=== PATIENT | female | born 1985 | race Caucasian/White ===

== ENCOUNTER 2023-05-12 09:24 | Emergency (ER) | payer SELFPAY ==
[2023-05-12 10:10] LABS: Hematocrit 41.2 % (34.9-44.5); Hemoglobin 14.2 g/dL (12.0-15.5); Mean Corpuscular Volume 91.6 fl (81.6-98.3); White Blood Cell (WBC) Count 16.6 10x3/uL (3.5-10.5)
[2023-05-12 10:12] LABS: Mean Corpuscular HGB CONC 34.5 g/dL (32.0-36.0); Mean Corpuscular Hemoglobin 31.6 pg (27.0-33.0); RBC Distribution Width 12.8 % (11.5-14.5)
[2023-05-12 10:13] LABS: #Neutrophils 11.3 10x3/uL (1.5-8.4); %Basophils 0.5 % (0.0-2.0); %Eosinophils 1.7 % (0.0-6.0); %Lymphocytes 22.9 % (18.0-47.0); %Monocytes 6.2 % (0.0-10.0); %Neutrophils 68.3 % (40.0-75.0); Mean Platelet Volume 11.9 fl (7.4-10.4); Platelet Count 293 10x3/uL (130-400)
[2023-05-12 10:14] LABS: #Basophils 0.1 10x3/uL (0.0-0.2); #Eosinphils 0.3 10x3/uL (0.0-0.5)
[2023-05-12 10:40] LABS: Carbon Dioxide 25 mmol/L (22-29); Chloride 103 mmol/L (98-107); Potassium 3.5 mmol/L (3.5-5.1); Sodium 139 mmol/L (136-145)
[2023-05-12 10:41] LABS: ALT (SGPT) 18 U/L (8-55); AST (SGOT) 19 U/L (5-34); Albumin 4.5 g/dL (3.5-5.0); Alkaline Phosphatase 71 U/L (40-110); Anion Gap 15 mmol/L (10-20); BUN (Urea Nitrogen) 8 mg/dL (7.0-18.7); Bilirubin, Total 0.3 mg/dL (0.2-1.2); Calc. Creatinine Clearance 0 mL/min (70-130); Calcium 9.3 mg/dL (7.6-10.4); Estimated GFR 108; Globulin 3.4 g/dL (2.4-3.5); Glucose 98 mg/dL (70-105); Protein, Total 7.9 g/dL (6.0-8.3)
[2023-05-12] MEDS ORDERED: Ondansetron ODT 4 MG TAB ONE (10:41)
[2023-05-12 11:21] LABS: Bilirubin Neg (Negative); Blood, Urine Negative (Negative); Clarity Clear (Clear); Glucose, Urine (Dipstick) Normal (Negative); Ketone, Urine Negative (Negative); Leukocyte Negative (Negative); Nitrite Negative (Negative); Protein, Urine (Dipstick) Negative (Neg-Trace); Specific Gravity, Urine 1.015 (1.005-1.030); Urobilinogen Normal mg/dL (Less than 2)
[2023-05-12 11:26] LABS: Pregnancy Test - Urine (BHCG) Negative (Negative); Pregu Control Background? CLEAR/WHITE (CLR/WHITE); Pregu Control Bar Appear? YES (CONTROL BAR); Specific Gravity 1.015 (1.002-1.036)
[2023-05-12 11:30] LABS: Bacteria/HPF 2+ HPF (None Seen); CAUTI Indications for Culture Pregnancy; Mucous/LPF 1+ LPF (<2+); RBC/HPF 0-3 HPF (0-3); WBC/HPF 0-3 HPF (0-3)
[2023-05-12 11:32] LABS: Urine Culture Reflex Yes Yes
== END 2023-05-12 11:38 | disposition left against medical advice (07) ==
LOC: CSHERS 09:24
DX: Z53.21 Procedure and treatment not carried out due to patient leaving prior to being seen by health care provider (principal)
CPT/HCPCS: 80053; 81001; 81025; 83690; 85025; 87086; Q0162

== ENCOUNTER 2024-06-13 18:20 | Emergency (ER) | payer SELFPAY ==
[~2024-06-13 18:20] MED LIST: Iopamidol 300 61% 100 ML VIAL FS ONE
[2024-06-13 19:25] LABS: #Basophils 0.05 10x3/uL (0.0-0.2); #Monocytes 0.99 10x3/uL (0.0-1.1); #Neutrophils 6.96 10x3/uL (1.5-8.4); %Basophils 0.5 % (0.0-2.0); %Eosinophils 1.8 % (0.0-6.0); %Lymphocytes 24.7 % (18.0-47.0); %Neutrophils 63.6 % (40.0-75.0); Hematocrit 40.6 % (34.9-44.5); Hemoglobin 13.6 g/dL (12.0-15.5); Mean Corpuscular HGB CONC 33.5 g/dL (32.0-36.0); Mean Corpuscular Hemoglobin 30.2 pg (27.0-33.0); Mean Corpuscular Volume 90.2 fL (81.6-98.3); Mean Platelet Volume 11.8 fL (7.4-10.4); Platelet Count 289 10x3/uL (150-450); RBC Distribution Width 12.6 % (11.5-14.5)
[2024-06-13 19:39] LABS: ALT (SGPT) 18 U/L (8-55); AST (SGOT) 20 U/L (5-34); Albumin 4.1 g/dL (3.5-5.0); Alkaline Phosphatase 66 U/L (40-110); Anion Gap 13 mmol/L (10-20); BUN (Urea Nitrogen) 7 mg/dL (7.0-18.7); Bilirubin, Total 0.5 mg/dL (0.2-1.2); Calc. Creatinine Clearance 0 mL/min (70-130); Calcium 9.5 mg/dL (7.8-10.44); Carbon Dioxide 25 mmol/L (22-29); Chloride 104 mmol/L (98-107); Estimated GFR 104; Globulin 3.7 g/dL (2.4-3.5); Glucose 89 mg/dL (70-105); Lipase 26 U/L (8-78); Potassium 3.5 mmol/L (3.5-5.1); Protein, Total 7.8 g/dL (6.0-8.3); Sodium 138 mmol/L (136-145)
[2024-06-13] MEDS ORDERED: Ketorolac Tromethamine 30 MG (1 mL) VIAL ONE (20:07)
[2024-06-13] MEDS ORDERED: Ondansetron PF 4 MG/2 ML Vial ONE (20:07)
[2024-06-13 21:10] LABS: Bilirubin Neg (Negative); Blood, Urine Negative (Negative); Clarity Clear (Clear); Glucose, Urine (Dipstick) Normal (Negative); Ketone, Urine Negative (Negative); Leukocyte Negative (Negative); Nitrite Negative (Negative); Protein, Urine (Dipstick) Negative (Neg-Trace); Urobilinogen Normal mg/dL (Less than 2)
[2024-06-13 21:29] LABS: Bacteria/HPF Rare-Few HPF (None Seen); CAUTI Indications for Culture Pelvic or flank pain; Mucous/LPF Rare LPF (<2+); RBC/HPF 0-3 HPF (0-3); Squamous Epithelial 0-3 HPF (0-3); Urine Culture Reflex No No; WBC/HPF 0-3 HPF (0-3)
[2024-06-13] MEDS ORDERED: Morphine 4 MG/ML VIAL ONE ×2 (21:30→23:26)
[2024-06-14] MEDS ORDERED: HYDROcodone/Acetaminophen 5/325 mg Tablet ONE (00:37)
== END 2024-06-14 00:50 | disposition home or self-care (01) ==
LOC: CSHERS 18:20
DX: N83.202 Unspecified ovarian cyst, left side (principal); N83.201 Unspecified ovarian cyst, right side; Z55.0 Illiteracy and low-level literacy
CPT/HCPCS: 36415; 74177; 76856; 80053; 81001; 83690; 85025; 96374; 96375; J1885; J2272; J2405; Q9967